=== PATIENT | female | born 1990 | race Caucasian/White ===

== ENCOUNTER 2016-04-06 15:10 | Emergency (ER) | payer OTHER ==
[2016-04-06] MEDS ORDERED: NS 1,000 ML IV ONE (15:26)
--- NOTE | 2016-04-06 15:26 | EDPHY ---
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 She did have a complete LOC. She also had head strike. Denies headache. She denies chest pain, shortness of breath, palpitations, any history of family history of cardiac arrhythmia. She does tell me she has had this happen to her approximately a year ago for the same situation dehydration, poor oral intake, and rushing to class. Currently this time upon arrival in the emergency room she is resting comfortably no acute distress she does not having complaints. 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 ROS REVIEW OF SYSTEMS: A comprehensive 10 point review of systems is otherwise negative aside from elements mentioned in the history of present illness. Exam Constitutional triage nursing summary reviewed, vital signs reviewed, awake/ alert. Eyes normal conjunctivae and sclera, EOMI, PERRLA. HENT normal inspection, atraumatic, moist mucus membranes, no epistaxis, neck supple/ no meningismus, no raccoon eyes. Respiratory clear to auscultation bilaterally, normal breath sounds, no respiratory distress, no wheezing. Cardiovascular rate normal, regular rhythm, no murmur, no edema, distal pulses normal. Gastrointestinal soft, non-tender, no rebound, no guarding, normal bowel sounds, no distension, no pulsatile mass. Genitourinary no CVA tenderness. Musculoskeletal no midline vertebral tenderness, full range of motion, no calf swelling, no tenderness of extremities, no meningismus, good pulses, neurovascularly intact. Skin pink, warm, & dry, no rash, skin atraumatic. Neurologic awake, alert and oriented x 3, AAOx3, moves all 4 extremities equally, motor intact, sensory intact, CN II-XII intact, normal cerebellar, normal vision, normal speech. Psychiatric normal mood/affect. Heme/Lymph/Immune no lymphadenopathy. Differential Diagnosis: Includes but is not limited to in a particular order, vasovagal syncope, orthostatic syncope, dehydration, cardiac arrhythmia, electrolyte abnormality, infection Medical Decision Making: this patient be placed on full cardiac monitor technician she will have an EKG to syncope, patient received fluid bolus as it was noted by EMS or blood pressures and 90 systolic which runs normal for her. We will check orthostatics. Basic blood work. She will need a CT scan of her head due to syncope with head strike. Re-evaluation: EKG interpretation by me on record in [facility] system. Impression time of EKG 1543, this is sinus rhythm rate of 75. No signs of arrhythmia specifically no signs of Brugada WPW, intervals are appropriate. No signs of ischemia. CT scan of the head without IV contrast for trauma. The results of the study are negative for acute traumatic injury. The study was read by Dr. SERNA I viewed the images myself on the PACS system. 1642: Time of re-evaluation: The patient is resting comfortably here, no acute distress. She feels fine she would like to be discharged. She ambulated well without any difficulty. She does understand return emergency room if she develops a other syncopal episode chest pain or shortness of breath. Strict return precautions given to her. She understands. Source: Patient - Personal History LMP (Females 10-55): Now - Medical/Surgical History Other PMH: Depression Constitutional: Initial Vital Signs Temperature (C) 36.8 C 04/06/16 15:11 Heart Rate 74 04/06/16 15:11 Respiratory Rate 18 04/06/16 15:11 Blood Pressure 119/77 04/06/16 15:11 O2 Sat (%) 93 04/06/16 15:11 O2 Delivery Mode Room Air Allergies/Adverse Reactions: No Known Allergies Allergy (Unverified 04/06/16 15:12) Home Medications: Medication Instructions Recorded Unobtainable 04/06/16 Medical Decision Making - Data Points Laboratory Results: Laboratory Results 04/06/16 15:20 04/06/16 15:20 04/06/16 15:20 WBC 6.69 10^3/uL (3.80-9.50) RBC 5.50 H 10^6/uL (4.18-5.33) Hgb 14.6 g/dL (12.6-16.3) Hct 45.8 % (38.0-47.0) MCV 83.3 fL (81.5-99.8) MCH 26.5 L pg (27.9-34.1) MCHC 31.9 L g/dL (32.4-36.7) RDW 13.1 % (11.5-15.2) Plt Count 294 10^3/uL (150-400) MPV 10.5 fL (8.7-11.7) Neut % (Auto) 66.6 % (39.3-74.2) Lymph % (Auto) 24.8 % (15.0-45.0) [place] % (Auto) 6.4 % (4.5-13.0) Eos % (Auto) 1.5 % (0.6-7.6) Baso % (Auto) 0.6 % (0.3-1.7) Nucleat RBC Rel Count 0.0 % (0.0-0.2) Absolute Neuts (auto) 4.45 10^3/uL (1.70-6.50) Absolute Lymphs (auto) 1.66 10^3/uL (1.00-3.00) Absolute Monos (auto) 0.43 10^3/uL (0.30-0.80) Absolute Eos (auto) 0.10 10^3/uL (0.03-0.40) Absolute Basos (auto) 0.04 10^3/uL (0.02-0.10) Absolute Nucleated RBC 0.00 10^3/uL (0-0.01) Immature Gran % 0.1 % (0.0-1.1) Immature Gran # 0.01 10^3/uL (0.00-0.10) Sodium 141 mEq/L (134-144) Potassium 3.6 mEq/L (3.5-5.2) Chloride 102 mEq/L (97-110) Carbon Dioxide 26 mEq/l (22-31) Anion Gap 13 mEq/L (8-16) BUN 11 mg/dL (7-23) Creatinine 0.8 mg/dL (0.6-1.0) Estimated GFR > 60 Glucose 118 H mg/dL (70-100) Calcium 9.3 mg/dL (8.5-10.4) Beta HCG, Qual NEGATIVE Medications Given: Discontinued Medications Sodium Chloride (Ns) 1,000 mls @ 0 mls/hr IV ONCE ONE PRN Reason: As Directed Stop: 04/06/16 15:27 Last Admin: 04/06/16 16:00 Dose: 1,000 mls Departure - Departure Disposition: Home, Routine, Self-Care Clinical Impression: Syncope Qualifiers: Syncope type: unspecified Qualifier Code: (R55) Syncope and collapse Condition: Good Instructions: Syncope (ED) Additional Instructions: 1. Stay well-hydrated drink lots of fluids 2. return to the emergency room if develops any worsening symptoms questions or concerns.
[2016-04-06 15:44] LABS: % IMMATURE GRANULYOCYTES 0.1 % (0.0-1.1); ABSOLUTE IMMATURE GRANULOCYTES 0.01 10^3/uL (0.00-0.10); ADD DIFF? NO; ADD MORPH? NO; ADD SCAN? NO; ATYPICAL LYMPHOCYTE FLAG 50 (0-99); FRAGMENT RBC FLAG 0 (0-99); HEMATOCRIT 45.8 % (38.0-47.0); HEMOGLOBIN 14.6 g/dL (12.6-16.3); LEFT SHIFT FLG 0 (0-99); LIPEMIA HEMOLYSIS FLAG 80 (0-99); MEAN CELL HEMOGLOBIN 26.5 pg (27.9-34.1); MEAN CELL HEMOGLOBIN CONCENTR. 31.9 g/dL (32.4-36.7); MEAN CELL VOLUME 83.3 fL (81.5-99.8); MEAN PLATELET VOLUME 10.5 fL (8.7-11.7); PLATELET CLUMPS FLAG 0 (0-99); PLATELET COUNT 294 10^3/uL (150-400); RED CELL DISTRIBUTION WIDTH 13.1 % (11.5-15.2)
[2016-04-06 16:00] LABS: ANION GAP 13 mEq/L (8-16); CALCIUM 9.3 mg/dL (8.5-10.4); CARBON DIOXIDE 26 mEq/l (22-31); CHLORIDE 102 mEq/L (97-110); CREATININE 0.8 mg/dL (0.6-1.0); GLOMERULAR FILTRATION RATE > 60; GLUCOSE 118 mg/dL (70-100); POTASSIUM 3.6 mEq/L (3.5-5.2); SODIUM 141 mEq/L (134-144)
--- NOTE | 2016-04-06 16:58 | CT ---
CT of the Head (Without Contrast) Indication: Trauma. Technique: Standard noncontrast head CT protocol utilizing 5-mm thick collimated slices and field of view 23 cm. Dose reduction techniques were utilized. Findings: No intracranial hemorrhage, mass, ischemia, swelling, or extraaxial fluid collection. Th e ventricles are normal caliber and midline. The miles-white matter has normal attenuation. The bones are unremarkable. There is an air-fluid level in the right maxillary sinus, an incidental finding. Impression: Nothing acute intracranially. Findings were discussed with Dr. Avinash Ellis.
[2016-04-06 17:31] VITALS: BP 105/76; PULSE 89; RESP 16; TEMP 97.9; O2SAT 98
--- NOTE | 2016-04-06 17:59 | CPEKG ---
Heart Rate: 75 RR Interval: 800 P-R Interval: 136 QRSD Interval: 90 QT Interval: 396 QTC Interval: 443 P Gillham: 56 QRS Gillham: 91 T Wave Gillham: 34 EKG Severity - OTHERWISE NORMAL ECG - EKG Impression: SINUS RHYTHM EKG Impression: BORDERLINE RIGHT AXIS DEVIATION Electronically Signed By: Avinash Ellis 08-Apr-2016 05:38:57
== END 2016-04-06 17:20 | disposition home or self-care (01) ==
DX: R55 Syncope and collapse (principal)

== ENCOUNTER 2017-09-02 12:46 | Emergency (ER) | payer OTHER ==
[2017-09-02] MEDS ORDERED: NS 1,000 ML IV ONE (13:00)
--- NOTE | 2017-09-02 13:00 | CPEKG ---
Heart Rate: 64 RR Interval: 938 P-R Interval: 132 QRSD Interval: 94 QT Interval: 428 QTC Interval: 442 P [place]: 49 QRS [place]: 89 T Wave [place]: 33 EKG Severity - NORMAL ECG - EKG Impression: SINUS RHYTHM Electronically Signed By: Alvaro Morales 02-Sep-2017 13:02:43
[2017-09-02] MEDS ORDERED: LET GEL TOPICAL 1 EA SYR TP ONE (13:01)
--- NOTE | 2017-09-02 13:02 | EDPHY ---
H & P Time Seen by Provider: 09/02/17 12:56 HPI/ROS: CHIEF COMPLAINT: Syncope, laceration HISTORY OF PRESENT ILLNESS: The patient is a 27-year-old female who comes to the emergency department complaining of a syncopal event and forehead laceration. She was standing in line for coffee when she fainted. This has happened to her before. She states that she smoked much more marijuana today than she is used to and was feeling dehydrated and dry mouth. She denies chest pain or shortness of breath. She hit her head on the ground and has a laceration to her right forehead. No vision changes. She did not have any seizure-like activity. No vomiting. She does not have a headache. No neck pain. REVIEW OF SYSTEMS: Constitutional: denies: chills, fever, recent illness, recent injury EENTM: denies: blurred vision, double vision, nose congestion Respiratory: denies: cough, shortness of breath Cardiac: See HPI denies: chest pain, irregular heart rate, palpitations Gastrointestinal/Abdominal: denies: abdominal pain, diarrhea, nausea, vomiting, blood streaked stools Genitourinary: denies: dysuria, frequency, hematuria, pain Musculoskeletal: denies: joint pain, muscle pain Skin: See HPI Neurological: denies: headache, numbness, paresthesia, tingling, dizziness, weakness Hematologic/Lymphatic: denies: blood clots, easy bleeding, easy bruising Immunologic/allergic: denies: HIV/AIDS, transplant EXAM: GENERAL: Well-appearing, well-nourished and in no acute distress. HEAD: Forehead laceration 3 cm above right eyebrow Atraumatic, normocephalic. EYES: 2 cm laceration within right eyebrow. Pupils equal round and reactive to light, extraocular movements intact, sclera anicteric, conjunctiva are normal. ENT: TMs normal, nares patent, oropharynx clear without exudates. Moist mucous membranes. NECK: Normal range of motion, supple without lymphadenopathy or JVD. LUNGS: Breath sounds clear to auscultation bilaterally and equal. No wheezes rales or rhonchi. HEART: Regular rate and rhythm without murmurs, rubs or gallops. ABDOMEN: Soft, nontender, normoactive bowel sounds. No guarding, no rebound. No masses appreciated. BACK: No CVA tenderness, no spinal tenderness, step-offs or deformities EXTREMITIES: Normal range of motion, no pitting or edema. No clubbing or cyanosis. NEUROLOGICAL: Cranial nerves II through XII grossly intact. Normal speech, normal gait. 5/5 strength, normal movement in all extremities, normal sensation PSYCH: Normal mood, normal affect. SKIN: Warm, dry, normal turgor, no visible rashes or lesions. Source: Patient Exam Limitations: No limitations - Medical/Surgical History Hx Asthma: No Hx Chronic Respiratory Disease: No Hx Diabetes: No Hx Cardiac Disease: No Hx Renal Disease: No Hx Cirrhosis: No Hx Alcoholism: No Other PMH: Depression - Family History Significant Family History: No pertinent family hx - Social History Smoking Status: Never smoked Alcohol Use: Occasionally Drug Use: Marijuana Constitutional: Initial Vital Signs Temperature (C) 36.5 C 09/02/17 12:45 Heart Rate 71 09/02/17 12:45 Respiratory Rate 14 09/02/17 12:45 Blood Pressure 110/65 09/02/17 12:45 O2 Sat (%) 100 09/02/17 12:45 O2 Delivery Mode Room Air Allergies/Adverse Reactions: No Known Allergies Allergy (Unverified 04/06/16 15:12) Home Medications: Medication Instructions Recorded Zoloft 100mg (*) 09/02/17 Medical Decision Making - Diagnostics EKG Interpretation: An EKG obtained and was read and documented in trace view. Please see trace view for full reading and report. Sinus rhythm, no acute ischemic changes Procedures: Procedure: Laceration repair. Verbal consent was obtained from the patient. The 3 cm forehead laceration was anesthetized with 1% lidocaine with epi and bicarbonate locally infiltrated. The wound was irrigated copiously according to protocol, draped and explored to its base. It was approximately 1/2 cm deep. There were no deep structures involved. No tendon, nerve, or vascular injury was identified when explored through full range of motion. No foreign body was identified. The wound was repaired with 6.0 Prolene, 8 sutures, interrupted. The wound repair was complex with multiple flap realignment. The procedure was performed by myself. A dressing was then placed with sterile gauze and bacitracin. Procedure: Laceration repair. Verbal consent was obtained from the patient. The 2 cm right eyebrow laceration was anesthetized with 1% lidocaine with epi and bicarbonate locally infiltrated. The wound was irrigated copiously according to protocol, draped and explored to its base. It was approximately 1/2 cm deep. There were no deep structures involved. No tendon, nerve, or vascular injury was identified when explored through full range of motion. No foreign body was identified. The wound was repaired with 6.0 Prolene, 5 sutures, interrupted. The wound repair was simple without wound margin revisement or multiple flap alignment. The procedure was performed by myself. A dressing was then placed with sterile gauze and bacitracin. ED Course/Re-evaluation: Patient tolerated suture repair well. Her lab work and EKG are reassuring. She is not concerned about the syncope. There several explanations. She denies headache nausea vomiting. She is eager to go home. We discussed suture care and removal. Differential Diagnosis: Partial list of the Differential diagnosis considered include but were not limited to; syncope, substance abuse, dehydration, laceration and although unlikely based on the history and physical exam, I also considered fracture, intracranial injury, neck injury. I discussed these differential diagnoses and the plan with the patient as well as the usual and expected course. The patient understands that the diagnosis is provisional and that in medicine we are not always correct and that further workup is often warranted. Usual and customary warnings were given. All of the patient's questions were answered. The patient was instructed to return to the emergency department should the symptoms at all worsen or return, otherwise to followup with the physician as we discussed. - Data Points Laboratory Results: Laboratory Results 09/02/17 13:00 09/02/17 13:00 Medications Given: Discontinued Medications Sodium Chloride (Ns) 1,000 mls @ 0 mls/hr IV EDNOW ONE; Wide Open PRN Reason: Protocol Stop: 09/02/17 13:01 Last Admin: 09/02/17 13:07 Dose: Not Given Departure - Departure Disposition: Home, Routine, Self-Care Clinical Impression: Syncope and collapse, Marijuana abuse Facial laceration Qualifiers: Encounter type: initial encounter Qualified Code(s): S01.81XA - Laceration without foreign body of other part of head, initial encounter Condition: Fair Instructions: Laceration (ED), Syncope (ED), Cannabis Abuse (ED) Additional Instructions: Have your stitches removed in 7 days. Referrals: Patient,NotPresent [Unknown] - As per Instructions
[2017-09-02 13:11] LABS: PLATELET COUNT 285 10^3/uL (150-400)
[2017-09-02 14:47] VITALS: BP 103/68
== END 2017-09-02 14:47 | disposition home or self-care (01) ==
LOC: EDBD → EDUNIT#
PROC: 0HQ1XZZ Repair Face Skin, External Approach (ICD-10-PCS; principal; 2017-09-02)
DX: S01.81XA Laceration without foreign body of other part of head, initial encounter (principal); S01.111A Laceration without foreign body of right eyelid and periocular area, initial encounter; W01.198A Fall on same level from slipping, tripping and stumbling with subsequent striking against other object, initial encounter; Y99.8 Other external cause status; Y93.89 Activity, other specified; R55 Syncope and collapse; F12.10 Cannabis abuse, uncomplicated